=== PATIENT | male | born 1970 | race Caucasian/White ===

== ENCOUNTER 2020-12-23 16:04 | Inpatient (IN) | payer OTHER ==
[~2020-12-23] VITALS: Ht 188 cm; Wt 70.8 kg
[2020-12-23] MEDS ORDERED: NALOXONE HCL 0.4 MG/ML AMPUL IV ONE ×2 (16:30→19:30)
[2020-12-23] MEDS ORDERED: ONDANSETRON HCL/PF 4 MG/2 ML VIAL IVP ONE (16:30)
[2020-12-23] MEDS ORDERED: IPRATROPIUM NEB FS 0.5 MG/2.5 ML AMPUL.NEB NEB ONE (16:30)
[2020-12-23] MEDS ORDERED: methylPREDNISolone SOD SUCC 125 MG/2ML VIAL IV ONE (16:30)
[2020-12-23] MEDS ORDERED: IV NS 0.9% 1,000 ML BAG IV ONE ×2 (16:30→19:30)
[2020-12-23] MEDS ORDERED: ALBUTEROL FS 2.5 MG/3 ML VIAL.NEB NEB ONE (16:30)
[2020-12-23] MEDS ORDERED: methylPREDNISolone SOD SUCC 125 MG/2ML VIAL ONE (16:31)
[2020-12-23] MEDS ORDERED: ONDANSETRON HCL/PF 4 MG/2 ML VIAL ONE (16:32)
[2020-12-23] MEDS ORDERED: NALOXONE PREFILLED SYRINGE 2 MG/2 ML SYRINGE ONE ×2 (16:32→19:13)
[2020-12-23] MEDS ORDERED: ALBUTEROL FS 2.5 MG/3 ML VIAL.NEB ONE (16:38)
[2020-12-23] MEDS ORDERED: IPRATROPIUM NEB FS 0.5 MG/2.5 ML AMPUL.NEB ONE (16:38)
[2020-12-23 16:44] LABS: BASOPHILS % (AUTO) 0.4 % (0.0-2.0); EOSINOPHILS % (AUTO) 0.1 % (0.0-6.0); HEMATOCRIT 43 % (39-51); HEMOGLOBIN 13.7 g/dL (13.5-17.5); LYMPHOCYTES # (AUTO) 0.7 K/uL (0.8-4.8); LYMPHOCYTES % (AUTO) 7.3 % (20.0-44.0); MEAN CORPUSCULAR HGB CONC 32 g/dl (31.0-36.0); MEAN CORPUSCULAR VOLUME 93 fL (80-96); MONOCYTES # (AUTO) 0.4 K/uL (0.1-1.30); MONOCYTES % (AUTO) 4.3 % (2.0-12.0); NEUTROPHILS # (AUTO) 8.8 K/uL (1.8-8.9); NEUTROPHILS % (AUTO) 87.9 % (43.0-81.0); PLATELET COUNT (AUTO) 211 K/uL (150-450); RED BLOOD CELL COUNT(AUTO) 4.59 MIL/uL (4.5-6.0)
[2020-12-23 16:48] LABS: CALCIUM, SERUM 8.7 mg/dL (8.5-10.1); CARBON DIOXIDE 33 mmol/L (21-32); CHLORIDE 99 mmol/L (98-107); CREATININE 0.6 mg/dL (0.6-1.3); GLUCOSE 154 mg/dL (74-106); POTASSIUM 4.6 mmol/L (3.5-5.1); SODIUM SERUM 137 mmol/L (136-145); UREA NITROGEN, BLOOD 12 mg/dL (7-18)
--- NOTE | 2020-12-23 16:49 | NUR ---
BIBFRIEND TO ER BED 7. DROWSY BUT ARROUSABLE. BREATHING SHALLOW AND NOTED 50% ON RA. PLACE ON O2, 4LPM VIA NC SATTING @ 95%. 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 WAST AT THE BEDSIDE FOR EVAL. ORDERS RECEIVED, NOTED AND CARRIED OUT. IV LINE ON RFA 18G, BLOOD DRAWN AND MEDICATED ORDERED
[2020-12-23 17:00] LABS: ALANINE AMINOTRANSFERASE 15 U/L (12-78); ALBUMIN 3.5 g/dL (3.4-5.0); ALKALINE PHOSPHATASE 59 U/L (46-116); ASPARTATE AMINOTRANSFERASE 19 U/L (15-37); BILIRUBIN,DIRECT 0.1 mg/dL (0.0-0.2); BILIRUBIN,TOTAL 0.6 mg/dL (0.2-1.0); TOTAL PROTEIN, SERUM 7.5 g/dL (6.4-8.2)
--- NOTE | 2020-12-23 18:19 | NUR ---
PT IS IN BED SLEEPING, ARROUSABLE AND RESPONSIVE. PT NOTED WITH 02 SAT 93% ON 4LPM VIA NC. MD IS AWARE AND OK.
--- NOTE | 2020-12-23 19:12 | NUR ---
PT NOTED WITH BP OF 86/51. MD MADE AWARE. ORDERS RECEIVED.
--- NOTE | 2020-12-23 19:35 | NUR ---
LAB CALLED REGARDING NEGATIVE COVID RESULT.
--- NOTE | 2020-12-23 19:36 | NUR ---
SENT URINE SPECIMEN TO LAB
--- NOTE | 2020-12-23 20:00 | NUR ---
CALLED NURSING SUP FOR BED
--- NOTE | 2020-12-23 20:53 | NUR ---
TELE 112-2
--- NOTE | 2020-12-23 21:05 | NUR ---
report given to LIZA Chacko for kristin
--- NOTE | 2020-12-23 21:17 | NUR ---
pt transported to unit on gurney with emt adn rn at bedside with acls protocol. nad noted during transport
--- NOTE | 2020-12-23 21:50 | NUR ---
2110 patient came from ER via gurney. Sleepy but arousable. Refused to change into hospital gown. Belonging sheet shows he has howard but he refused to have it checked at this time. Will recheck later
[2020-12-23] MEDS ORDERED: ONDANSETRON HCL/PF 4 MG/2 ML VIAL IVP PRN (22:00)
[2020-12-23] MEDS ORDERED: ALBUTEROL FS 2.5 MG/0.5 ML VIAL.NEB NEB PRN (22:00)
[2020-12-23] MEDS ORDERED: ACETAMINOPHEN 325 MG TABLET PO PRN (22:00)
[2020-12-23] MEDS ORDERED: MAG HYDROX/AL HYDROX/SIMETH 30 ML UDC PO PRN (22:00)
[2020-12-23] MEDS ORDERED: MAGNESIUM HYDROXIDE 30 ML UDC PO PRN (22:00)
[2020-12-23] MEDS ORDERED: IPRATROPIUM NEB FS 0.5 MG/2.5 ML AMPUL.NEB NEB PRN (22:00)
[2020-12-23] MEDS ORDERED: Z GUARD REMEDY 2 OZ OINT TP PRN (22:00)
[2020-12-23] MEDS: IV 1/2NS 1000 ML 1,000 ML IV PRN (23:09)
[2020-12-23 23:14] VITALS: BP 128/80
[2020-12-24] VITALS: BP 103/68
[2020-12-24] MEDS: ENOXAPARIN SODIUM 40 MG/0.4 ML DISP.SYRIN SQ SCH ×2 (00:04→21:16)
--- NOTE | 2020-12-24 02:33 | NUR ---
RN notes Admitted a 50 year old male from ER via stretcher with diagnosis of COPD exacerbation,. On 4lpm via nasal cannula tolerating well. Breathing even and unlabored. Alert and oriented, sleepy but arousable. Refused skin assessment. Refused ADL. Refused to wear gown. Noted with productive cough. No complaint of pain or discomfort. Kept clean and comfortable. Will endorse to next shift for continuity of care.
[2020-12-24 04:00] VITALS: BP 90/51
[2020-12-24] MEDS: methylPREDNISolone SOD SUCC 125 MG/2ML VIAL IV SCH ×3 (06:23→21:14)
[2020-12-24 06:26] LABS: BASOPHILS % (AUTO) 0.2 % (0.0-2.0); HEMATOCRIT 40 % (39-51); HEMOGLOBIN 13.1 g/dL (13.5-17.5); LYMPHOCYTES # (AUTO) 1.1 K/uL (0.8-4.8); LYMPHOCYTES % (AUTO) 17.2 % (20.0-44.0); MEAN CORPUSCULAR HGB CONC 32 g/dl (31.0-36.0); MEAN CORPUSCULAR VOLUME 93 fL (80-96); MONOCYTES # (AUTO) 0.4 K/uL (0.1-1.30); MONOCYTES % (AUTO) 6.4 % (2.0-12.0); NEUTROPHILS # (AUTO) 4.7 K/uL (1.8-8.9); NEUTROPHILS % (AUTO) 76.2 % (43.0-81.0); PLATELET COUNT (AUTO) 185 K/uL (150-450); RED BLOOD CELL COUNT(AUTO) 4.32 MIL/uL (4.5-6.0); WHITE BLOOD COUNT (AUTO) 6.1 K/uL (4.3-11.0)
[2020-12-24 06:46] LABS: CALCIUM, SERUM 8.3 mg/dL (8.5-10.1); CREATININE 0.7 mg/dL (0.6-1.3); MAGNESIUM 1.7 mg/dL (1.8-2.4); PHOSPHORUS 3.2 mg/dL (2.5-4.9); POTASSIUM 4.7 mmol/L (3.5-5.1)
[2020-12-24 06:55] LABS: THYROID STIMULATING HORMONE 0.085 uIU/mL (0.358-3.74)
--- NOTE | 2020-12-24 07:30 | NUR ---
RN OPENING NOTE PT IN BED SUPINE A/Ox4, BREATHING NC 4L, NO SIGNS OF RESP DISTRESS OR SOB. PT STATES HE HAD AN OVERDOSE OF HEROIN LAST NIGHT. PT INFUSING 1/2 NS @ 75ML/HR IN RFA #18, FLUSHED AND PATENT WITH NO SIGNS OF INECTION OR INFILTRATION. PT GAIT IS STEADY. ALL PT SAFETY PRECAUTIONS IN PLCAE, WILL CONT TO MONITOR
[2020-12-24 08:00] VITALS: BP 123/75
[2020-12-24] MEDS: PANTOPRAZOLE 40 MG TABLET.DR PO SCH (08:06)
[2020-12-24] MEDS ORDERED: FLUT1BLS13 INH (08:17)
[2020-12-24] MEDS ORDERED: ALBU18HF2 INH (08:17)
--- NOTE | 2020-12-24 08:57 | NUR ---
RN NOTE PT RENEE ENDORSED TO LIZA BARAJAS. ALL PT SAFETY PRECAUTIONS IN PLACE Addendum: 12/24/20 at 0901 by TATI CHAVES RN PT C/O SOB, HOB RAISED TO 60% AND NC TURNED UP TO 6L. RN TAKING OVER WILL RECHECK SPO2 AND TITRATE O2 ACCORDINGLY
[2020-12-24 12:00] VITALS: BP 125/73
--- NOTE | 2020-12-24 12:00 | NUR ---
RN NOTE PT REPORT GIVEN BY LIZA CHAWLA FOR RENEE
[2020-12-24] MEDS ORDERED: HYDROMORPHONE 1 MG/1 ML DISP.SYRIN IV ONE (13:30)
--- NOTE | 2020-12-24 13:35 | NUR ---
RN NOTE DILAUDID 1MG GIVEN FOR HEROIN WITHDRAWALS
[2020-12-24] MEDS: GABAPENTIN 300 MG CAPSULE PO SCH ×2 (13:42→17:18)
[2020-12-24] MEDS: CLONIDINE HCL 0.1 MG TABLET PO SCH ×2 (13:43→17:18)
--- NOTE | 2020-12-24 14:50 | NUR ---
Corn Sheller consult: tree worker was called to evaluate this 50-year-old, male who reported history of heroin use. Per chart, patient was brought into the emergency department by the patients friend on 12/23/20 and reported heroin use prior to arrival. Patient was given a dose of Naloxone by Dr. Krishnamurthy. This social sciences department chair met with patient at his bedside in the med-surg unit. SW attempted to interview the patient. Patient presented irritable and refused to speak to SW. Patient stated, I dont want to talk to you. SW was unable to interview the patient to assess psychosocial needs or discuss resources. PLAN: SS will remain available as needed.
[2020-12-24 15:50] LABS: ABG BASE EXCESS 1.6 mmol/L; ABG OXYGEN SATURATION 92.9 % (92.0-98.5); ABG PCO2 36.9 mmHg (35.0-45.0); ABG PH 7.457 (7.350-7.450); ABG PO2 61.7 mmHg (75.0-100.0); AaDO2 108.8 mmHg; COHb 0.5 % (0.5-1.5); MetHb 0.1 % (0.0-1.5); O2Hb 92.3 % (94.0-97.0); SITE, ABG Right Radial; VENT MODE, BG NC 3L
[2020-12-24 16:00] VITALS: BP 127/79
[2020-12-24] MEDS ORDERED: QUETIAPINE FUMARATE 100 MG TABLET PO PRN (17:00)
--- NOTE | 2020-12-24 19:00 | NUR ---
RN CLOSING NOTE PT EXPERIENCED SLIGHT HEROIN WITHDRAWAL SYMPTOMS EARLIER. JERKER MARIETTA DALTON MADE AWARE, ORDERS PLACED ACCORDINGLY. PT FEELING BETTER NOW. ALL PT SAFETY PRECAUTIONS IN PLACE, RENEE ENDORSED TO PLANTING MATERIAL REMOVER RN
[2020-12-24 20:00] VITALS: BP_SYST 120; BP_SYST 145; BP_DIAS 52; BP_DIAS 73
[2020-12-24] MEDS: LORAZEPAM 0.5 MG TABLET PO SCH (21:14)
[2020-12-24] MEDS: ZOLPIDEM TARTRATE 5 MG TABLET PO PRN (21:31)
[2020-12-25] VITALS: BP 120/73
[2020-12-25] MEDS: IV 1/2NS 1000 ML 1,000 ML IV PRN ×2 (00:23→14:13)
[2020-12-25] MEDS: MORPHINE SULFATE INJ 4 MG/ML DISP.SYRIN IV PRN (01:59)
--- NOTE | 2020-12-25 03:26 | NUR ---
RN notes In bed, restless, cold and chills. Experiencing withdrawal from heroine. Ambien for sleep given @09:30, seroquel for anxiety given @00:30 and morphine sulfate for pain administered @02:00. Patient still experiencing withdrawls. Alert and oriented x 4. Ambulatory, verbal. On 4lpm via nasal cannula, tolerating well. Breathing even and unlabored. No respiratory distress noted. Refused ADL, refused to change to hospital gown. Needs attended. Monitoring closely. Will endorse to next shift for continuity of care.
[2020-12-25 04:00] VITALS: BP 105/55
[2020-12-25] MEDS: methylPREDNISolone SOD SUCC 125 MG/2ML VIAL IV SCH ×2 (05:24→13:03)
[2020-12-25 07:00] LABS: HEMATOCRIT 41 % (39-51); HEMOGLOBIN 13.1 g/dL (13.5-17.5); LYMPHOCYTES # (AUTO) 1.3 K/uL (0.8-4.8); LYMPHOCYTES % (AUTO) 7.8 % (20.0-44.0); MEAN CORPUSCULAR HGB CONC 32 g/dl (31.0-36.0); MEAN CORPUSCULAR VOLUME 93 fL (80-96); MONOCYTES # (AUTO) 0.7 K/uL (0.1-1.30); MONOCYTES % (AUTO) 4.1 % (2.0-12.0); NEUTROPHILS # (AUTO) 15.1 K/uL (1.8-8.9); NEUTROPHILS % (AUTO) 88.1 % (43.0-81.0); PLATELET COUNT (AUTO) 209 K/uL (150-450); WHITE BLOOD COUNT (AUTO) 17.2 K/uL (4.3-11.0)
--- NOTE | 2020-12-25 07:20 | NUR ---
RN OPENING NOTES PATIENT RECEIVED IN BED RESTING IN SEMI-FOWLERS POSITION. PATIENT ON O2 THERAPY VIA NC AT 3 LPM. NO COMPLAINTS OF PAIN. R FA IV ACCESS G INTACT AND PATENT RUNNING 1/2 NS AT 75 ML/HR. SAFETY PRECAUTIONS IMPLEMENTED, BED LOCKED IN LOW POSITION, SIDE RAILS UP X2, CALL LIGHT WITHIN REACH. WILL CONTINUE TO MONITOR AND PROVIDE CARE THROUGHOUT SHIFT.
[2020-12-25 07:29] LABS: CALCIUM, SERUM 8.7 mg/dL (8.5-10.1); CREATININE 0.6 mg/dL (0.6-1.3); MAGNESIUM 1.8 mg/dL (1.8-2.4); PHOSPHORUS 2.8 mg/dL (2.5-4.9)
[2020-12-25 08:00] VITALS: BP 147/79
[2020-12-25] MEDS: PANTOPRAZOLE 40 MG TABLET.DR PO SCH (08:39)
[2020-12-25] MEDS: GABAPENTIN 300 MG CAPSULE PO SCH ×3 (08:39→16:19)
[2020-12-25] MEDS: LORAZEPAM 0.5 MG TABLET PO SCH ×2 (08:39→23:18)
[2020-12-25] MEDS: CLONIDINE HCL 0.1 MG TABLET PO SCH ×3 (08:40→16:21)
[2020-12-25] MEDS: DOXYCYCLINE HYCLATE (100 MG) 100 MG TABLET PO SCH ×2 (12:49→23:20)
[2020-12-25 16:00] VITALS: BP 142/90
--- NOTE | 2020-12-25 18:35 | NUR ---
substance abuse resources provided for client. patient comprehends that resources are available but does not have motivation or interest in attending. will still include resources upon discharge and inform incoming shift.
--- NOTE | 2020-12-25 18:45 | NUR ---
RN CLOSING NOTES PATIENT IN BED RESTING IN LEFT LATERAL POSITION. PATIENT ON O2 THERAPY VIA NC AT 2 LPM. NO COMPLAINTS OF PAIN. R FA IV ACCESS G INTACT AND PATENT RUNNING 1/2 NS AT 75 ML/HR. SAFETY PRECAUTIONS IMPLEMENTED, BED LOCKED IN LOW POSITION, SIDE RAILS UP X2, CALL LIGHT WITHIN REACH. WILL ENDORSE CARE TO UPCOMING SHIFT.
[2020-12-25 20:00] VITALS: BP 132/71
[2020-12-25] MEDS: ZOLPIDEM TARTRATE 5 MG TABLET PO PRN (23:20)
[2020-12-25] MEDS: ENOXAPARIN SODIUM 40 MG/0.4 ML DISP.SYRIN SQ SCH (23:27)
[2020-12-26 04:00] VITALS: BP 131/98
[2020-12-26] MEDS: IV 1/2NS 1000 ML 1,000 ML IV PRN (05:54)
--- NOTE | 2020-12-26 05:55 | NUR ---
RN notes Alert and oriented. Refused care. Less restless and uneasy compared to last night. Ambulartory. No complaint of pain or discomfort. No significant change of condition. Will endorse to next shift for continuity of care.
--- NOTE | 2020-12-26 07:30 | NUR ---
RN OPENING NOTE RECEIVED PATIENT IN BED. A/O X4. ON NC AT 2 LPM. NO SOB NOTED. IN NO APPARENT DISTRESS. PT VERBALIZED PAIN ON HIS STOMACH 01/08. IV ACCESS ON , 07/03 NS CURRENTLY RUNNING AT 75 ML/HR, INTACT AND PATENT. SAFETY MEASURES MAINTAINED. BED IN LOWEST POSITION, BRAKES LOCKED. SIDE RAILS UP X2. CALL LIGHT WITHIN REACH. WILL CONTINUE PLAN OF CARE.
[2020-12-26 08:28] VITALS: BP 131/74
[2020-12-26] MEDS: GABAPENTIN 300 MG CAPSULE PO SCH (08:28)
[2020-12-26] MEDS: DOXYCYCLINE HYCLATE (100 MG) 100 MG TABLET PO SCH (08:28)
[2020-12-26] MEDS: LORAZEPAM 0.5 MG TABLET PO SCH (08:28)
[2020-12-26] MEDS: CLONIDINE HCL 0.1 MG TABLET PO SCH (08:28)
[2020-12-26] MEDS: PANTOPRAZOLE 40 MG TABLET.DR PO SCH (08:28)
[2020-12-26] MEDS: MORPHINE SULFATE INJ 4 MG/ML DISP.SYRIN IV PRN (08:29)
--- NOTE | 2020-12-26 08:43 | NUR ---
RN NOTE GAVE REPORT TO LIZA MALONE FOR CONTINUITY OF CARE
[2020-12-26] MEDS ORDERED: predniSONE 20 MG TABLET PO SCH (09:00)
--- NOTE | 2020-12-26 10:47 | NUR ---
care taken over. alert, oriented, walked to bathroom, steady gait. appeared subdued, " the morphine they gave me earlier helped me a lot, ", when asked where the pain was, very vague response. Found him on RA, said he is okayed without oxgyen No sign of withdrawal noted at this time, on Catapress and Ativan , anyway, if needed
[2020-12-26] MEDS ORDERED: DOXY100T2 PO (12:10)
[2020-12-26] MEDS ORDERED: HYDR-4303 PO (12:10)
[2020-12-26] MEDS ORDERED: METH-806 PO (12:10)
[2020-12-26] MEDS ORDERED: PRED20TA PO (12:10)
[2020-12-26] MEDS ORDERED: ALPR0.5T PO (12:13)
== END 2020-12-26 12:59 | disposition home or self-care (01) | DRG 816 ==
LOC: ER 16:10 → TELE1 20:55 → MEDSG1 12-24 08:55
PROVIDERS: ADMIT Student in an Organized Health Care Education/Training Program; ATTEND Nurse Practitioner Family
DX: T40.1X1A Poisoning by heroin, accidental (unintentional), initial encounter (principal); J96.21 Acute and chronic respiratory failure with hypoxia; G92 Toxic encephalopathy; J44.1 Chronic obstructive pulmonary disease with (acute) exacerbation; E86.0 Dehydration; I10 Essential (primary) hypertension; Y92.89 Other specified places as the place of occurrence of the external cause; Z20.822 Contact with and (suspected) exposure to COVID-19; R79.89 Other specified abnormal findings of blood chemistry; J96.22 Acute and chronic respiratory failure with hypercapnia; Z72.0 Tobacco use; F32.9 Major depressive disorder, single episode, unspecified; G47.00 Insomnia, unspecified; F41.9 Anxiety disorder, unspecified; F11.23 Opioid dependence with withdrawal; T38.0X5A Adverse effect of glucocorticoids and synthetic analogues, initial encounter; Y92.9 Unspecified place or not applicable; D72.829 Elevated white blood cell count, unspecified; F19.10 Other psychoactive substance abuse, uncomplicated
CPT/HCPCS: 36415; 36600; 71045-TC; 80048-TC; 80061-TC; 80076-TC; 83735-TC; 83880; 84100-TC; 84443-TC; 84484-TC; 85025-TC; 87081-TC; C9803; G0378; J1170; J1650; J2270; J2310; J2405; J2930; J3490; J7030